=== PATIENT | female | born 1985 ===

== ENCOUNTER 2021-11-04 05:34 | Day surgery (SDC) | payer OTHER | END 2021-11-04 15:30 | disposition home or self-care (01) | LOC: CIR.AMB 05:34 | PROVIDERS: ATTEND Obstetrics & Gynecology | DX: N70.91 Salpingitis, unspecified (principal); N73.6 Female pelvic peritoneal adhesions (postinfective); Z20.822 Contact with and (suspected) exposure to COVID-19 ==